=== PATIENT | male | born 1990 | race Caucasian/White ===

== ENCOUNTER 2025-06-15 17:58 | Emergency (ER) | payer MEDICAID ==
[~2025-06-15] VITALS: Ht 175.3 cm; Wt 120.2 kg
[2025-06-15 18:08] VITALS: TEMP 98.1
[2025-06-15 18:44] LABS: APPEARANCE,URINE CLEAR (CLEAR); BLOOD, URINE TRACE-INTA Ery/uL (NEGATIVE); LEUKOCYTE ESTERASE ,URINE NEGATIVE (NEGATIVE); NITRITE, URINE NEGATIVE (NEGATIVE); UGLUCOSE NEGATIVE (NEGATIVE)
[2025-06-15 19:00] LABS: ADD URINE CULTURE NO; SQUAMOUS EPITHELIAL CELL,UR None Seen /HPF (None Seen)
[2025-06-15] MEDS: ONDANSETRON HCL/PF 4 MG/2 ML VIAL IVP ONE (19:02)
[2025-06-15] MEDS: MORPHINE SULFATE INJ 2 MG/ML DISP.SYRIN IV ONE ×2 (19:03→20:50)
[2025-06-15 19:08] LABS: PLATELET COUNT (AUTO) 312 K/uL (150-450); RED BLOOD CELL COUNT(AUTO) 4.85 MIL/uL (4.5-6.0); RED CELL DISTRIBUTION WIDTH 14.0 % (11.5-15.0); WHITE BLOOD COUNT (AUTO) 19.8 K/uL (4.3-11.0)
[2025-06-15] MEDS: IV NS 0.9% 1,000 ML BAG IV ONE (19:20)
[2025-06-15 19:28] LABS: CALCIUM, SERUM 9.4 mg/dL (8.5-10.1); CREATININE 1.3 mg/dL (0.6-1.3); SODIUM SERUM 135.0 mmol/L (136-145); UREA NITROGEN, BLOOD 20.0 mg/dL (7-18)
[2025-06-15 19:43] LABS: ASPARTATE AMINOTRANSFERASE 27.0 U/L (15-37); TOTAL PROTEIN, SERUM 8.0 g/dL (6.4-8.2)
[2025-06-15] MEDS ORDERED: IBUP-1953 PO (19:48)
[2025-06-15] MEDS ORDERED: TAMS-12 PO (19:48)
[2025-06-15] MEDS: LIDOCAINE HCL/PF 1% 30 ML VIAL TP ONE (20:37)
[2025-06-15] MEDS: KETOROLAC TROMETHAMINE 15 MG/ML VIAL IV ONE (20:49)
[2025-06-15 21:43] VITALS: BP 145/85; O2SAT 99
[2025-06-15] MEDS ORDERED: LIDOCAINE /MPF 1% VIAL 5 ML VIAL TP ONE (22:00)
== END 2025-06-15 21:41 | disposition home or self-care (01) ==
LOC: ER 18:06
DX: N13.2 Hydronephrosis with renal and ureteral calculous obstruction (principal)
CPT/HCPCS: 99285; 74176; 96374; 96375; 96361; 96376; 85025; 80048; 83690; 80076; 81001; 36415; J1885; J2405; J7030; J2270 ×2